=== PATIENT | male | born 1990 | race Caucasian/White ===

== ENCOUNTER 2019-08-21 12:32 | Emergency (ER) | payer OTHER ==
[~2019-08-21] VITALS: Ht 177.8 cm; Wt 95.3 kg
[~2019-08-21 12:32] MED LIST: CEFADROXIL500 MG PO
[2019-08-21] MEDS ORDERED: ZITHROMAX500 MG PO (16:12)
== END 2019-08-21 16:18 | disposition home or self-care (01) ==
LOC: ER 12:32
DX: J35.01 Chronic tonsillitis (principal)